=== PATIENT | female | born 1995 | race Caucasian/White ===

== ENCOUNTER 2018-03-21 19:29 | Emergency (ER) | payer MEDICAID, OTHER ==
[~2018-03-21] VITALS: Ht 157.5 cm; Wt 53.6 kg
[~2018-03-21 19:29] MED LIST: DSS100 PO; PERCT PO
[2018-03-21] MEDS ORDERED: PERTUSS(ACELL),DIPH,TET VAC/PF 0.5 ML VIAL IM ONE (20:45)
[2018-03-21] MEDS ORDERED: POVIDONE-IODINE 10% 15 ML SOLUTION UD TP ONE (20:45)
[2018-03-21] MEDS ORDERED: IBUPROFEN 800 MG TABLET PO ONE (20:45)
[2018-03-21 21:20] VITALS: BP 120/77
== END 2018-03-21 21:24 | disposition home or self-care (01) ==
LOC: EMS 19:31
DX: S41.152A Open bite of left upper arm, initial encounter (principal); W54.0XXA Bitten by dog, initial encounter; Y93.89 Activity, other specified; Y92.89 Other specified places as the place of occurrence of the external cause; Y99.8 Other external cause status
CPT/HCPCS: 90471; 90715; 99283